=== PATIENT | female | born 1955 | race Caucasian/White ===

== ENCOUNTER 2018-09-16 04:44 | Emergency (ER) | payer OTHER ==
[2018-09-16 05:24] VITALS: BMI 31.4
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
[2018-09-16] MEDS ORDERED: ACETAMINOPHEN 325 MG TABLET (FP) PO ONE (06:12)
[2018-09-16] MEDS ORDERED: ACETAMINOPHEN 325 MG TABLET (FP) ONE (06:13)
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
[2018-09-16 08:53] VITALS: BP 129/83; PULSE 82; TEMP 98
== END 2018-09-16 09:19 | disposition home or self-care (01) ==
LOC: JER 04:44
DX: S00.83XA Contusion of other part of head, initial encounter (principal); Y04.2XXA Assault by strike against or bumped into by another person, initial encounter; Y93.89 Activity, other specified; Y92.018 Other place in single-family (private) house as the place of occurrence of the external cause; Y99.8 Other external cause status; Y07.410 Brother, perpetrator of maltreatment and neglect
CPT/HCPCS: 36415; 70450-TC; 70486-TC; 72125-TC; 73060-TC-LT-FY; 99285-25

== ENCOUNTER 2022-07-10 12:01 | Emergency (ER) | payer OTHER ==
[2022-07-10 13:09] VITALS: BP 127/59; PULSE 79; RESP 18; TEMP 97.9; BMI 28.1
[2022-07-10] MEDS ORDERED: IBUPROFEN 600 MG TABLET (FP) PO ONE ×2 (14:11→14:16)
== END 2022-07-10 15:49 | disposition home or self-care (01) ==
LOC: JER 12:01
DX: R07.82 Intercostal pain (principal); M25.461 Effusion, right knee; W10.8XXA Fall (on) (from) other stairs and steps, initial encounter
CPT/HCPCS: 71046-TC-FY; 73562-TC-RT-FY; 73610-TC-RT-FY; 93005; 93010; 99285-25